=== PATIENT | female | born 1980 | race Caucasian/White ===

== ENCOUNTER 2017-07-24 17:02 | Inpatient (IN) | payer MEDICAID ==
[~2017-07-24] VITALS: Ht 157.5 cm; Wt 75.4 kg
--- NOTE | 2017-07-24 17:38 | TRIAGE ---
OB Triage Datetime Report Generated by CPN: 07/24/2017 17:38 Datetime: 07/24/2017 17:21 EGA: 38.0 Datetime: 07/24/2017 17:00 Time of Arrival: 07/24/2017 17:00 Arrived By: Wheelchair Arrived From: Home Chief Complaint: PT CAME IN C/O LEAKING FLUID SINCE 3:30 PM Movement: Present Contractions: Occasional Rupture of Membranes: Denies Vaginal Discharge: Denies Recent Sexual Intercouse: Denies Abdominal Trauma: Not Applicable Patient Complaints: Contractions Additional Patient Complaints: NONE Time Provider Notified: 07/24/2017 17:21 Provider Notified: CLARA Initial Plan: MONITOR, VE AND ROM +
[2017-07-24 17:39] VITALS: BP 128/61; PULSE 123; RESP 19; Ht 157.5 cm; Wt 75.4 kg
--- NOTE | 2017-07-24 17:40 | HP ---
Date/Time of Note Date/Time of Note DATE: 07/24/17 TIME: 17:39 OB - History Hx of Present Free Text/Dictation AT TERM ADMITTED WITH SROM AND UTERINE CTXS. PREVIOUS C/S Care: Good Care Ultrasounds: Normal mid trimester US Obstetrical Complications: None Medical Complications: None Past Family/Social History * Past Medical, Surgical, Family and Obstetric Histories reviewed from chart. OB Admission Exam Physical Exam HEENT: WNL Heart: Rhythm Normal Lungs: Clear, Equal Abdomen: WNL Extremities: Normal Reflexes: Normal Cervical Dilatation: 1cm Effacement: 25% Station: -3 Membranes: Ruptured Amniotic Fluid: Clear Heart Rate: 120's Accelerations: Accelerations Present Decelerations: No Decelerations OB Assessment/Plan Reason for admission: active labor, rupture of membranes Plan: Section NAOMIE ELIZABETH MD Jul 24, 2017 17:40
[2017-07-24] MEDS ORDERED: LACTATED RINGER'S 1,000 ML IV SCH (17:41)
[2017-07-24] MEDS ORDERED: OXYTOCIN 30 UNITS/LR 500 ML IV PRN ×2 (18:00→23:30)
[2017-07-24] MEDS ORDERED: MISOPROSTOL 200 MCG TAB PR PRN ×2 (18:00→23:30)
[2017-07-24] MEDS ORDERED: CEFAZOLIN 2 GM/50 ML (PMX) 50 ML IV SCH (18:00)
[2017-07-24] MEDS ORDERED: OXYTOCIN 30 UNITS/LR 500 ML IV SCH (18:00)
[2017-07-24] MEDS ORDERED: METHYLERGONOVINE 0.2 MG INJ IM PRN ×2 (18:00→23:30)
[2017-07-24] MEDS ORDERED: CARBOPROST 250 MCG INJ IM PRN ×2 (18:00→23:30)
[2017-07-24] MEDS ORDERED: LACTATED RINGER'S 1,000 ML IV ONE (18:18)
[2017-07-24 18:28] LABS: BASOPHILS % 0.2 % (0.0-2.0); EOSINOPHILS # 0.1 10^3/ul (0.0-0.5); EOSINOPHILS % 0.6 % (0.0-7.0); HEMATOCRIT 37.4 % (37.0-47.0); HEMOGLOBIN 12.6 g/dl (12.0-16.0); LYMPHOCYTES # 1.8 10^3/ul (0.8-2.9); LYMPHOCYTES % 21.9 % (15.0-51.0); MEAN CORPUSCULAR HEMOGLOBIN 30.7 pg (29.0-33.0); MEAN CORPUSCULAR HGB CONC 33.7 g/dl (32.0-37.0); MEAN PLATELET VOLUME 11.7 fl (7.4-10.4); MONOCYTE # 0.7 10^3/ul (0.3-0.9); MONOCYTES % 8.3 % (0.0-11.0); NEUTROPHIL # 5.7 10^3/ul (1.6-7.5); NEUTROPHILS % 68.5 % (39.0-77.0); PLATELET COUNT 163 10^3/UL (140-415); RED BLOOD COUNT 4.11 10^6/ul (4.20-5.40); RED CELL DISTRIBUTION WIDTH 13.2 % (11.5-14.5); WHITE BLOOD COUNT 8.3 10^3/ul (4.8-10.8)
[2017-07-24] MEDS ORDERED: CITRIC ACID/NA CITRATE 30 ML CUP PO ONE (18:30)
[2017-07-24] MEDS ORDERED: FAMOTIDINE 20 MG INJ IV ONE (18:30)
[2017-07-24] MEDS ORDERED: METOCLOPRAMIDE 10 MG INJ IV ONE (18:30)
[2017-07-24 18:44] LABS: INR 0.9; PROTIME 12.1 Sec (12.2-14.2); PT RATIO 0.9
[2017-07-24 18:45] LABS: PARTIAL THROMBOPLASTIN TIME 26.3 Sec (25.0-35.0)
[2017-07-24] MEDS ORDERED: morphine SULFATE/PF (10 MG/10 ML) INJ ONE (19:48)
[2017-07-24] MEDS ORDERED: OXYTOCIN 30 UNITS/LR 500 ML IV ONE ×2 (19:48→20:26)
[2017-07-24] MEDS ORDERED: FENTAnyl 50 MCG/ML VIAL ONE (19:49)
[2017-07-24] MEDS ORDERED: PHENYLephrine (100 MCG/ML) 5ML SYG ONE ×2 (19:59→20:24)
[2017-07-24] MEDS ORDERED: ONDANSETRON 4 MG INJ ONE (20:16)
[2017-07-24] MEDS ORDERED: EPHEDrine SULFATE 50 MG/5 ML SYG ONE (20:23)
--- NOTE | 2017-07-24 20:38 | OPR ---
Operative Report Planned Procedure Procedure date Jul 24, 2017 Performed by see signature line Assisting provider: NAOMIE ELIZABETH MD Anesthesiologist: ALVA LAIRD MD Anesthesia Type: spinal Procedure Description Under satisfactory SPINAL anesthesia, the patient was prepped and draped and placed in a supine position, tilted to the left. Pfannenstiel incision was made , carried through the subcutaneous tissue. Bleeders brought under control with electrocautery. Fascia incised to the length of the incision. Rectus muscles from the fascia, divided midline. Peritoneum exposed, entered through a transverse incision. Exploration of abdomen revealed gravid uterus. Bladder flap was developed. Transverse incision was made in the lower segment of the uterus. Amniotic sac ruptured. CLEAR amniotic fluid noted. [] Nasal oropharyngeal suction was performed. The baby was handed to the team for immediate attention. The placenta was delivered manually intact. Uterine cavity was cleaned with wet sponge and drainage established. Uterus closed in 2 layers using [] in continuous fashion. Peritoneal cavity irrigated with warm saline. Sponge, needle and instrument count reported to be correct. Abdominal peritoneum closed with [ONE MONOCRYL] continuously. Rectus muscle approximated with []. Fascia closed with ONE MONOCRYL[], and skin closed with jake. Estimated blood loss 700]mL. Post-Procedure Findings: Live Baby [], Apgars [] and [], weight [], position [], [] presentation []cord. Estimated blood loss: 250 - 300 ml's Specimen(s): no Grafts/Implants: no Complication(s): no Pt Condition post procedure: stable Physician Certification I, the undersigned physician, hereby certify that I have discussed the procedure described in this consent form with this patient (or the patient's legal admitting representative), including: * The risk and benefits of the procedure; * Any adverse reactions that may reasonably be expected to occur; * Any alternative efficacious methods of treatment which may be medically viable ; * The potential problems that may occur during recuperation; * Potential for blood transfusion and associated risks/benefits; and * Any research or economic interest I may have regarding this treatment. I further certify that the patient/legally responsible person was encouraged to ask question and that all questions were answered. NAOMIE ELIZABETH MD Jul 24, 2017 20:38
[2017-07-24] MEDS ORDERED: MEPERIDINE 25 MG INJ IV PRN (21:00)
[2017-07-24] MEDS ORDERED: NALOXONE (0.4 MG/ML) INJ IV PRN (21:00)
[2017-07-24] MEDS ORDERED: FENTAnyl 50 MCG/ML VIAL IV PRN (21:00)
[2017-07-24] MEDS ORDERED: PROCHLORPERAZINE 10 MG INJ IV PRN (21:00)
[2017-07-24] MEDS ORDERED: HYDROmorphONE (0.2 MG/ML) 10ML SYG IV PRN (21:00)
[2017-07-24] MEDS ORDERED: DIPHENHYDRAMINE 50 MG INJ IV PRN ×2 (21:00)
[2017-07-24] MEDS ORDERED: KETOROLAC 30 MG INJ IV PRN (21:00)
[2017-07-24] MEDS ORDERED: ONDANSETRON 4 MG INJ IV PRN ×2 (21:00)
[2017-07-24] MEDS ORDERED: HYDROmorphONE 1 MG/ML SYG IV PRN ×2 (21:00)
[2017-07-24] MEDS ORDERED: ZOLPIDEM 5 MG TAB PO PRN (21:00)
[2017-07-24 23:25] VITALS: BP 113/58; PULSE 88; RESP 16
[2017-07-24] MEDS: LACTATED RINGER'S 1,000 ML IV SCH (23:26)
[2017-07-24] MEDS ORDERED: LANOLIN 7 GM TUBE TOP PRN (23:30)
[2017-07-24] MEDS ORDERED: NA PHOSPHATE/BIPHOS 133 ML ENEMA PR PRN (23:30)
[2017-07-24] MEDS ORDERED: NACL 0.9% 3 ML SYG IV SCH (23:30)
[2017-07-25 00:30] VITALS: BP 102/63; PULSE 105; RESP 16
[2017-07-25] MEDS: OXYTOCIN 30 UNITS/LR 500 ML IV SCH ×2 (01:18→04:50)
[2017-07-25] MEDS: KETOROLAC 30 MG INJ IV PRN ×2 (01:22→13:34)
[2017-07-25 02:30] VITALS: BP 91/45; PULSE 88; RESP 18
[2017-07-25 04:00] VITALS: BP 86/45; PULSE 71; RESP 20
[2017-07-25 08:00] VITALS: BP 105/59; PULSE 92; RESP 18
[2017-07-25] MEDS: LACTATED RINGER'S 1,000 ML IV SCH ×2 (10:19→23:26)
[2017-07-25 16:00] VITALS: BP 102/53; PULSE 69; RESP 18
--- NOTE | 2017-07-25 18:08 | PN ---
Date/Time of Note Date/Time of Note DATE: 07/25/17 TIME: 18:05 OB Subjective Subjective Subjective \Breast-feeding. Has not passed flatus yet. Tolerating regular diet. Has not gotten out of the bed yet. Vaginal bleeding decreased. Denies any depressive symptoms. OB Objective Objective Objective General appearance: Alert and oriented 4. Patient does not appear to be in any acute distress. Abdomen: Soft, incision: Clean dry and intact. Normal bowel sounds. Breasts: No evidence of engorgement, fissure or mastitis extremities: No calf tenderness, no click no edema, no cords palpable Hematology - 72 Hrs Test 07/24/17 17:45 White Blood Count 8.310^3/ul (4.8-10.8) Red Blood Count 4.1110^6/ul (4.20-5.40) L Hemoglobin 12.6g/dl (12.0-16.0) Hematocrit 37.4% (37.0-47.0) Mean Corpuscular Volume 91.0fl (82.0-101.0) Mean Corpuscular Hemoglobin 30.7pg (29.0-33.0) Mean Corpuscular Hemoglobin Concent 33.7g/dl (32.0-37.0) Red Cell Distribution Width 13.2% (11.5-14.5) Platelet Count 85073^3/UL (140-415) Mean Platelet Volume 11.7fl (7.4-10.4) H Neutrophils % 68.5% (39.0-77.0) Lymphocytes % 21.9% (15.0-51.0) Monocytes % 8.3% (0.0-11.0) Eosinophils % 0.6% (0.0-7.0) Basophils % 0.2% (0.0-2.0) Nucleated Red Blood Cells % 0.0/100WBC (0.0-0.0) Neutrophils # 5.710^3/ul (1.6-7.5) Lymphocytes # 1.810^3/ul (0.8-2.9) Monocytes # 0.710^3/ul (0.3-0.9) Eosinophils # 0.110^3/ul (0.0-0.5) Basophils # 0.010^3/ul (0.0-0.1) Nucleated Red Blood Cells # 0.010^3/ul (0.0-0.0) OB Assessment/Plan Other Assessment: Status post section Postop day #1 Doing well Continue recent postop care Start ambulation CRESCENCIO ADAME MD Jul 25, 2017 18:07
[2017-07-25] MEDS ORDERED: HYDROCODONE/APAP (5/325) TAB PO PRN (19:59)
[2017-07-25 20:00] VITALS: BP 102/54; PULSE 77; RESP 18
[2017-07-25] MEDS: IBUPROFEN 800 MG TAB PO SCH (21:48)
[2017-07-26 04:40] VITALS: BP 99/52; PULSE 86; RESP 18
[2017-07-26] MEDS: IBUPROFEN 800 MG TAB PO SCH ×3 (06:12→21:38)
[2017-07-26] MEDS: LACTATED RINGER'S 1,000 ML IV SCH ×3 (07:26→23:26)
[2017-07-26 08:30] VITALS: BP 105/51; PULSE 70; RESP 18
[2017-07-26 16:10] VITALS: BP 106/50; PULSE 75; RESP 19
[2017-07-26 19:30] VITALS: BP 117/59; PULSE 84; RESP 18
[2017-07-27 04:20] VITALS: BP 112/66; PULSE 17; RESP 17
[2017-07-27] MEDS: IBUPROFEN 800 MG TAB PO SCH (05:43)
[2017-07-27 08:00] VITALS: BP 114/58; PULSE 79; RESP 18
[2017-07-27] MEDS ORDERED: DIPHTH/TET/ACEL PERTUSS (ADULT) 0.5 ML VIAL IM* ONE (09:00)
[2017-07-27] MEDS ORDERED: MEASLES,MUMPS,RUBELLA VACCINE INJ SC* ONE (09:00)
--- NOTE | 2017-07-27 10:13 | DS ---
Date/Time of Note Date/Time of Note DATE: 07/27/17 TIME: 10:12 Discharge Summary Admission/Discharge Info Admit Date/Time Jul 24, 2017 at 17:58 Discharge Date/Time Discharge Diagnosis term preg Patient Condition: Stable Hospital Course unremarkable Primary Care Provider Care Physician No Primary NAOMIE ELIZABETH MD Jul 27, 2017 10:13
== END 2017-07-27 12:50 | disposition home or self-care (01) | DRG 766 ==
LOC: OBT 17:02 → L-D 17:05 → OBT 17:21 → L-D 17:58 → OBG 23:25 → PP1 07-26 18:45
PROVIDERS: ADMIT Obstetrics & Gynecology; ATTEND Obstetrics & Gynecology
PROC: 3E033VJ Introduction of Other Hormone into Peripheral Vein, Percutaneous Approach (ICD-10-PCS; 2017-07-24)
PROC: 10D00Z1 Extraction of Products of Conception, Low, Open Approach (ICD-10-PCS; principal; 2017-07-24 20:00)
PROC: 3E00X4Z Introduction of Serum, Toxoid and Vaccine into Skin and Mucous Membranes, External Approach (ICD-10-PCS; 2017-07-27)
DX: O34.211 Maternal care for low transverse scar from previous cesarean delivery (principal); Z23 Encounter for immunization; Z37.0 Single live birth; Z3A.38 38 weeks gestation of pregnancy
CPT/HCPCS: 85025; 85610; 85730; 86592; 86850; 86900; 86901; 87340; 90715; 99464; G0463; J0690; J1170; J1885; J2274; J2370; J2405; J2590; J2765; J3010; J7120